=== PATIENT | male | born 1990 | race Hispanic/Latino ===

== ENCOUNTER 2021-01-06 11:40 | Emergency (ER) | payer OTHER ==
[~2021-01-06] VITALS: Ht 170.2 cm; Wt 83.5 kg
[2021-01-06 15:19] LABS: GC DNA AMPLIFICATION NEGATIVE (NEGATIVE)
[2021-01-06 16:03] LABS: BASO # 0.1 10^3/uL (0.0-0.2); BASO % 1.1 % (0.0-1.0); EOS # 0.2 10^3/uL (0.0-0.5); EOS % 2.9 % (0.0-3.0); HEMATOCRIT 45.9 % (42.0-52.0); LYMPH # 2.1 10^3/uL (1.5-5.0); LYMPH % 32.5 % (24.0-44.0); MEAN CORPUSCULAR HGB CONC 34.9 g/dl (32.0-36.5); MEAN CORPUSCULAR VOLUME 83.2 fl (80.0-96.0); MONO # 0.4 10^3/uL (0.0-0.8); MONO % 6.7 % (2.0-8.0); NEUTROPHILS # 3.7 10^3/uL (1.5-8.5); NEUTROPHILS % 56.5 % (36.0-66.0); PLATELET COUNT, AUTOMATED 312 10^3/uL (150-450); RED BLOOD COUNT 5.52 10^6/uL (4.30-6.10); WHITE BLOOD COUNT 6.6 10^3/uL (4.0-10.0)
[2021-01-06 16:52] VITALS: BP 132/62
[2021-01-06 17:45] LABS: HEPATITIS B SURFACE ANTIBODY POSITIVE (POSITIVE); HEPATITIS B SURFACE ANTIGEN NEGATIVE (NEGATIVE); HEPATITIS C VIRUS ABY INDEX < 0.0 INDEX (<0.8); HIV 1&2 SCREEN CENTAUR NEGATIVE (NEGATIVE)
== END 2021-01-06 16:52 | disposition home or self-care (01) ==
LOC: M ED 11:40
DX: N50.3 Cyst of epididymis (principal)

== ENCOUNTER 2022-08-27 06:38 | Emergency (ER) | payer OTHER ==
[~2022-08-27] VITALS: Ht 172.7 cm; Wt 85.0 kg
[2022-08-27 08:31] LABS: BASO # 0.1 10^3/uL (0.0-0.2); BASO % 1.4 % (0.0-1.0); EOS # 0.2 10^3/uL (0.0-0.5); EOS % 3.1 % (0.0-3.0); HEMATOCRIT 41.8 % (42.0-52.0); HEMOGLOBIN 14.7 g/dl (13.5-17.5); LYMPH # 1.8 10^3/uL (1.5-5.0); LYMPH % 30.2 % (24.0-44.0); MEAN CORPUSCULAR HEMOGLOBIN 28.9 pg (27.0-33.0); MEAN CORPUSCULAR HGB CONC 35.2 g/dl (32.0-36.5); MEAN CORPUSCULAR VOLUME 82.3 fl (80.0-96.0); MONO # 0.5 10^3/uL (0.0-0.8); MONO % 8.5 % (2.0-8.0); NEUTROPHILS # 3.3 10^3/uL (1.5-8.5); NEUTROPHILS % 56.5 % (36.0-66.0); PLATELET COUNT, AUTOMATED 276 10^3/uL (150-450); RED BLOOD COUNT 5.08 10^6/uL (4.30-6.10); WHITE BLOOD COUNT 5.9 10^3/uL (4.0-10.0)
[2022-08-27] MEDS ORDERED: NAPR-837 PO (08:41)
[2022-08-27] MEDS ORDERED: PROT20TA11 PO (08:41)
[2022-08-27 08:51] LABS: LIPASE 39 U/L (12-53)
[2022-08-27 08:53] LABS: ALBUMIN 3.1 G/DL (3.2-5.2); ALKALINE PHOSPHATASE 54 U/L (46-116); ALT/SGPT 31 U/L (7.0-40); AST/SGOT 20 U/L (<34); BILIRUBIN,DIRECT 0.1 MG/DL (<0.4); BILIRUBIN,TOTAL 0.5 MG/DL (0.3-1.2); BLOOD UREA NITROGEN 10 MG/DL (9-23); CALCIUM LEVEL 8.7 MG/DL (8.5-10.1); CARBON DIOXIDE LEVEL 29 MMOL/L (20-31); CHLORIDE LEVEL 109 MMOL/L (98-107); CREATININE FOR GFR 0.87 MG/DL (0.70-1.30); GLOMERULAR FILTRATION RATE > 60.0 (>60); GLUCOSE, FASTING 108 MG/DL (60-100); POTASSIUM SERUM 4.8 MMOL/L (3.5-5.1); SODIUM LEVEL 140 MMOL/L (136-145); TOTAL PROTEIN 5.8 G/DL (5.7-8.2)
[2022-08-27 09:00] VITALS: BP 142/92
== END 2022-08-27 09:12 | disposition home or self-care (01) ==
LOC: M ED 06:38
DX: S23.429A Unspecified sprain of sternum, initial encounter (principal); M61.9 Calcification and ossification of muscle, unspecified; R00.1 Bradycardia, unspecified; Z79.1 Long term (current) use of non-steroidal anti-inflammatories (NSAID); Z79.899 Other long term (current) drug therapy